=== PATIENT | male | born 1955 | race Caucasian/White ===

== ENCOUNTER → 2021-04-05 | Outpatient (CLI) | payer OTHER, MEDICARE ==
[~2021-04-05] MED LIST: ASPIRIN325 PO; Docusate Sodium PO; Effient PO; FLOMAX PO; LIPITOR40 MG PO; LOPRESSOR25 PO; Lisinopril 10 Mg Tablet PO
== END ==
LOC: SJCVCIMAG 03-14 11:29 → SJCVC 09:50 → SJCVCIMAG 09:50
PROVIDERS: ATTEND Internal Medicine
DX: I25.10 Atherosclerotic heart disease of native coronary artery without angina pectoris (principal); E78.5 Hyperlipidemia, unspecified; I10 Essential (primary) hypertension; G47.33 Obstructive sleep apnea (adult) (pediatric); Z95.5 Presence of coronary angioplasty implant and graft; Z79.82 Long term (current) use of aspirin; Z79.899 Other long term (current) drug therapy